=== PATIENT | female | born 1985 | race Hispanic/Latino ===

== ENCOUNTER 2017-07-14 07:03 | Emergency (ER) | payer MEDICAID, OTHER ==
[~2017-07-14 07:03] MED LIST: METR500T PO
[2017-07-14 07:24] LABS: APPEARANCE,URINE CLEAR (CLEAR); BILIRUBIN,URINE NEGATIVE (NEGATIVE); COLOR,URINE YELLOW (YELLOW); GLUCOSE, URINE (UA) NEGATIVE (NEGATIVE); KETONES,URINE NEGATIVE (NEGATIVE); LEUKOCYTE ESTERASE ,URINE LARGE (NEGATIVE); NITRATE,URINE NEGATIVE (NEGATIVE); OCCULT BLOOD,URINE SMALL (NEGATIVE); PH,URINE 6.5 (5.0-8.0); PROTEIN,URINE 100 (NEGATIVE); UROBILINOGEN,URINE 0.2 mg/dL (0.2-1.0)
[2017-07-14 07:44] LABS: BACTERIA,URINE Moderate /HPF (None Seen); WBC,URINE 51-100 /HPF (0-1)
== END 2017-07-14 08:11 | disposition home or self-care (01) ==
LOC: EDH 07:03
DX: N39.0 Urinary tract infection, site not specified (principal); Z88.0 Allergy status to penicillin; Z98.51 Tubal ligation status; Z98.890 Other specified postprocedural states
CPT/HCPCS: 81001; 81025; 87088; 87186

== ENCOUNTER 2017-08-04 00:19 | Emergency (ER) | payer SELFPAY | END 2017-08-04 01:45 | disposition home or self-care (01) | LOC: EDH 00:19 | DX: J10.1 Influenza due to other identified influenza virus with other respiratory manifestations (principal); Z88.0 Allergy status to penicillin; Z72.0 Tobacco use | CPT/HCPCS: 87804; 87880 ==

== ENCOUNTER 2018-06-08 10:42 | Emergency (ER) | payer MEDICAID ==
[2018-06-08 11:04] LABS: APPEARANCE,URINE Cloudy (CLEAR); BILIRUBIN,URINE Negative (NEGATIVE); COLOR,URINE Yellow (YELLOW); GLUCOSE, URINE (UA) Negative (NEGATIVE); KETONES,URINE Trace mg/dL (NEGATIVE); LEUKOCYTE ESTERASE ,URINE Large (NEGATIVE); NITRATE,URINE Negative (NEGATIVE); OCCULT BLOOD,URINE Small (NEGATIVE); PH,URINE 5.5 (5.0-8.0); PROTEIN,URINE Trace (NEGATIVE)
[2018-06-08 11:09] LABS: HCG,QUAL RESULT NEGATIVE (NEGATIVE)
[2018-06-08 11:16] LABS: BACTERIA,URINE Rare /HPF (None Seen); MUCUS,URINE Few LPF (None Seen); RBC,URINE 0-1 /HPF (0-1); SQUAMOUS EPITHELIAL CELL,UR Rare /HPF (0-2); WBC,URINE TNTC /HPF (0-1)
[2018-06-08] MEDS ORDERED: LIDOCAINE HCL-MPF 1% 2ML VIAL ONE (11:39)
[2018-06-08] MEDS ORDERED: CEFTRIAXONE SODIUM 1 GM ONE (11:40)
== END 2018-06-08 11:55 | disposition home or self-care (01) ==
LOC: EDH 10:42
DX: N39.0 Urinary tract infection, site not specified (principal); Z88.0 Allergy status to penicillin
CPT/HCPCS: 81001; 81025; 96372; 99283; J0696; J3490

== ENCOUNTER 2019-06-15 11:42 | Emergency (ER) | payer MEDICAID ==
[2019-06-15 13:47] LABS: APPEARANCE,URINE Clear (CLEAR); BILIRUBIN,URINE Negative (NEGATIVE); COLOR,URINE Yellow (YELLOW); GLUCOSE, URINE (UA) Negative (NEGATIVE); KETONES,URINE Negative (NEGATIVE); LEUKOCYTE ESTERASE ,URINE Negative (NEGATIVE); NITRATE,URINE Negative (NEGATIVE); OCCULT BLOOD,URINE Negative (NEGATIVE); PH,URINE 8.5 (5.0-8.0); PROTEIN,URINE Negative (NEGATIVE)
[2019-06-15 13:50] LABS: HCG,QUAL RESULT NEGATIVE (NEGATIVE)
[2019-06-15] MEDS ORDERED: ORPHENADRINE CITRATE 30 MG/ML ML ONE (14:01)
[2019-06-15] MEDS ORDERED: KETOROLAC TROMETHAMINE 30MG/ML ONE (14:01)
== END 2019-06-15 14:52 | disposition home or self-care (01) ==
LOC: EDH 11:42
DX: M54.6 Pain in thoracic spine (principal); Z88.0 Allergy status to penicillin
CPT/HCPCS: 81003; 81025; 96372 ×2; 99284; J1885; J2360

== ENCOUNTER 2019-08-08 10:08 | Emergency (ER) | payer BC, MEDICAID ==
[2019-08-08 10:57] LABS: APPEARANCE,URINE Cloudy (CLEAR); BILIRUBIN,URINE Negative (NEGATIVE); COLOR,URINE Dark Yellow (YELLOW); GLUCOSE, URINE (UA) Negative (NEGATIVE); KETONES,URINE Trace mg/dL (NEGATIVE); LEUKOCYTE ESTERASE ,URINE Negative (NEGATIVE); NITRATE,URINE Negative (NEGATIVE); OCCULT BLOOD,URINE Negative (NEGATIVE); PH,URINE 5.5 (5.0-8.0); PROTEIN,URINE POS 1+ mg/dL (NEGATIVE)
[2019-08-08 11:19] LABS: HCG,QUAL RESULT NEGATIVE (NEGATIVE)
[2019-08-08 11:37] LABS: BASOPHILS % (AUTO) 0.4 % (0.0-5.0); EOSINOPHILS % (AUTO) 2.1 % (0.0-8.0); HEMATOCRIT 31.6 % (36-48); LYMPHOCYTES % (AUTO) 28.2 % (21.0-51.0); MEAN CORPUSCULAR HEMOGLOBIN 15.9 pg (27.0-33.0); MEAN CORPUSCULAR HGB CONC 26.3 g/dL (32.0-36.0); MEAN CORPUSCULAR VOLUME 60.7 fL (79-99); MONOCYTES % (AUTO) 9.5 % (3.0-13.0); NEUTROPHILS % (AUTO) 59.5 % (40.0-77.0); PLATELET COUNT (AUTO) 436 K/uL (130-400); RED BLOOD CELL COUNT(AUTO) 5.21 MIL/uL (4.00-5.50); RED CELL DISTRIBUTION WIDTH 20.5 % (11.0-15.5)
[2019-08-08 11:44] LABS: BACTERIA,URINE Few /HPF (None Seen); RBC,URINE 0-1 /HPF (0-1); WBC,URINE 0-1 /HPF (0-1)
[2019-08-08 12:10] LABS: CREATININE 0.7 mg/dL (0.5-1.5); POTASSIUM 3.2 mmol/L (3.5-5.1)
[2019-08-08 12:15] LABS: ALBUMIN 3.9 g/dL (3.5-5.0); BILIRUBIN,TOTAL 0.3 mg/dL (0.2-1.0); TOTAL PROTEIN, SERUM 8.8 g/dL (6.0-8.3)
== END 2019-08-08 14:16 | disposition home or self-care (01) ==
LOC: EDH 10:08
DX: R19.7 Diarrhea, unspecified (principal); Z88.0 Allergy status to penicillin; Z98.890 Other specified postprocedural states
CPT/HCPCS: 36415; 80053; 81001; 81025; 82948; 85025; 87046; 87804

== ENCOUNTER 2019-08-11 14:10 | Inpatient (IN) | payer BC ==
[~2019-08-11] VITALS: Ht 162.6 cm; Wt 86.2 kg
[2019-08-11 15:40] LABS: APPEARANCE,URINE Cloudy (CLEAR); BILIRUBIN,URINE Negative (NEGATIVE); COLOR,URINE Yellow (YELLOW); GLUCOSE, URINE (UA) Negative (NEGATIVE); KETONES,URINE Trace mg/dL (NEGATIVE); LEUKOCYTE ESTERASE ,URINE Small (NEGATIVE); NITRATE,URINE Negative (NEGATIVE); OCCULT BLOOD,URINE Negative (NEGATIVE); PH,URINE 5.5 (5.0-8.0); PROTEIN,URINE Negative (NEGATIVE)
[2019-08-11 15:45] LABS: HCG,QUAL RESULT NEGATIVE (NEGATIVE)
[2019-08-11 15:49] LABS: BASOPHILS % (AUTO) 0.3 % (0.0-5.0); EOSINOPHILS % (AUTO) 1.5 % (0.0-8.0); HEMATOCRIT 27.8 % (36-48); LYMPHOCYTES % (AUTO) 36.3 % (21.0-51.0); MEAN CORPUSCULAR HEMOGLOBIN 16.2 pg (27.0-33.0); MEAN CORPUSCULAR VOLUME 59.9 fL (79-99); MONOCYTES % (AUTO) 8.9 % (3.0-13.0); NEUTROPHILS % (AUTO) 52.7 % (40.0-77.0); PLATELET COUNT (AUTO) 376 K/uL (130-400); RED BLOOD CELL COUNT(AUTO) 4.64 MIL/uL (4.00-5.50); RED CELL DISTRIBUTION WIDTH 20.2 % (11.0-15.5); WHITE BLOOD COUNT (AUTO) 6.8 K/uL (4.8-10.8)
[2019-08-11] MEDS ORDERED: SODIUM CHLORIDE 0.9% 1000ML 1,000 ML IV ONE (15:55)
[2019-08-11 16:01] LABS: CREATININE 0.7 mg/dL (0.5-1.5); POTASSIUM 3.1 mmol/L (3.5-5.1)
[2019-08-11 16:06] LABS: BACTERIA,URINE Moderate /HPF (None Seen); MUCUS,URINE Many LPF (None Seen); SQUAMOUS EPITHELIAL CELL,UR Moderate /HPF (0-2)
[2019-08-11 16:07] LABS: BILIRUBIN,TOTAL 0.3 mg/dL (0.2-1.0)
[2019-08-11 16:08] LABS: ALBUMIN 3.5 g/dL (3.5-5.0); INR 1.04 (0.85-1.15); PARTIAL THROMBOPLASTIN TIME 28.4 SEC (26.3-35.5); PROTHROMBIN TIME 10.9 SEC (9.6-11.6); TOTAL PROTEIN, SERUM 7.8 g/dL (6.0-8.3)
[2019-08-11] MEDS ORDERED: POTASSIUM BICARB/CIT AC 25 MEQ TABLET.EFF ONE (17:42)
[2019-08-11] MEDS ORDERED: IRON SUCROSE COMPLEX 100 MG in SODIUM CHLORIDE 0.9% 50 ML IV SCH (20:00)
[2019-08-11] MEDS ORDERED: POTASSIUM CHLORIDE 20 MEQ ERTAB PO PRN (21:00)
[2019-08-11] MEDS ORDERED: ACETAMINOPHEN 325 MG TAB PO PRN ×2 (21:00)
[2019-08-11] MEDS ORDERED: LIDOCAINE HCL-MPF 1% 2ML VIAL IV PRN (21:00)
[2019-08-11] MEDS ORDERED: ONDANSETRON HCL 4 MG/2 ML VIAL IV PRN (21:00)
[2019-08-11] MEDS ORDERED: MAGNESIUM 2GM PREMIX 50ML 50 ML IV PRN (21:00)
[2019-08-11] MEDS ORDERED: SODIUM CHLORIDE 0.9% 1000ML 1,000 ML IV SCH (21:00)
[2019-08-11] MEDS ORDERED: POTASSIUM CHLORIDE 20MEQ/100ML 100 ML IV PRN (21:00)
[2019-08-11] MEDS ORDERED: POTASSIUM CHLORIDE 10% ELIXIR 20 MEQ/15 ML UDCUP ONE (21:19)
[2019-08-11] MEDS ORDERED: MAGNESIUM 2GM PREMIX 50ML 50 ML IV ONE (21:24)
[2019-08-11] MEDS ORDERED: FAMOTIDINE/PF 20 MG/2 ML VIAL IV ONE (21:25)
[2019-08-11] MEDS ORDERED: COMPOUND IV MISC 1 EACH IVSOLN MISC PRN (21:30)
[2019-08-11 23:41] VITALS: BP 125/70
[2019-08-12 03:49] VITALS: BP 115/67
[2019-08-12 04:42] LABS: ALBUMIN 3.3 g/dL (3.5-5.0); BILIRUBIN,TOTAL 0.2 mg/dL (0.2-1.0); CREATININE 0.6 mg/dL (0.5-1.5); MAGNESIUM 3.5 mg/dL (1.80-2.40); POTASSIUM 3.3 mmol/L (3.5-5.1); TOTAL PROTEIN, SERUM 7.3 g/dL (6.0-8.3)
[2019-08-12 04:51] LABS: BASOPHILS % (AUTO) 0.2 % (0.0-5.0); EOSINOPHILS % (AUTO) 1.2 % (0.0-8.0); LYMPHOCYTES % (AUTO) 48.8 % (21.0-51.0); MEAN CORPUSCULAR HEMOGLOBIN 16.1 pg (27.0-33.0); MEAN CORPUSCULAR HGB CONC 26.9 g/dL (32.0-36.0); MEAN CORPUSCULAR VOLUME 59.9 fL (79-99); MONOCYTES % (AUTO) 8.4 % (3.0-13.0); NEUTROPHILS % (AUTO) 41.2 % (40.0-77.0); PLATELET COUNT (AUTO) 366 K/uL (130-400); RED BLOOD CELL COUNT(AUTO) 4.34 MIL/uL (4.00-5.50); WHITE BLOOD COUNT (AUTO) 8.1 K/uL (4.8-10.8)
[2019-08-12] MEDS: POTASSIUM CHLORIDE 10% ELIXIR 20 MEQ/15 ML UDCUP PO PRN ×3 (05:15→09:53)
--- NOTE | 2019-08-12 05:15 | NUR ---
CRITICAL VALUE REPORT CALL PLACED TO ANSWERING SERVICE FOR LAURA GANDHI TO REPORT PATIENT CRITICAL VALUES.
--- NOTE | 2019-08-12 05:49 | NUR ---
TALKED TO PROVIDER FIELD ASSISTANT SPOKE TO LAURA GANDHI TO REPORT CRITICAL VALUES. PROVIDER SAID TO CONTINUE TO MONITOR PATIENT FOR ANY BLOOD LOSS AND TO REPEAT H&H AT 1200.
[2019-08-12 07:23] VITALS: BP 103/58
[2019-08-12] MEDS: FAMOTIDINE/PF 20 MG/2 ML VIAL IV SCH ×2 (08:58→21:08)
[2019-08-12] MEDS ORDERED: IRON SUCROSE COMPLEX 100 MG in SODIUM CHLORIDE 0.9% 50 ML IV SCH (09:00)
[2019-08-12 11:35] VITALS: BP 114/67
[2019-08-12 12:08] LABS: HEMATOCRIT 26.7 % (36-48)
--- NOTE | 2019-08-12 12:45 | NUR ---
CALLED ANSWERING SERVICE FOR HOSPITALIST TO NOTIFY DR. GARCIA OF CRITICAL VALUES. WILL WAIT FOR CALL BACK
--- NOTE | 2019-08-12 13:04 | NUR ---
RYANNE SCHMIDT NP NOTIFIED ON CRITICAL VALUE.
--- NOTE | 2019-08-12 15:30 | NUR ---
FIRST UNIT OF PRBC STARTED AT THIS TIME. SYMPTOMS OF TRANSFUSION REACTION REVIEWED WITH PATIENT. PT VERBALIZED UNDERSTANDING.
[2019-08-12 15:51] VITALS: BP 126/80
--- NOTE | 2019-08-12 16:40 | NUR ---
DCP: HOME met with pt who lives with her nancy Linda [phone] and 4 kids 11,8,5,4. Pt states she is independent, drives and works at [employer]. Pt is seen at [employer] by Shefali and uses [facility]. Pt denies dc needs and plan is home [place] Addendum: 08/12/19 at 1643 by GURPREET CHOUDHARY SS Amended: Links added.
--- NOTE | 2019-08-12 17:15 | NUR ---
UNIT OF PRBC COMPLETED AT THIS TIME. NO REACTION NOTED.
--- NOTE | 2019-08-12 17:20 | NUR ---
LAURA CARMONA NOTIFIED THAT BLOOD TRANSFUSION WAS COMPLETE. NEW ORDERS RECEIVED. PATIENT WILL STAY TO BE OBSERVED. DISCONTINUE IV FLUIDS.
[2019-08-12 19:18] VITALS: BP 116/71
[2019-08-12 23:53] VITALS: BP 113/61
[2019-08-13 03:21] VITALS: BP 102/50
[2019-08-13 04:53] LABS: HEMATOCRIT 29.6 % (36-48)
[2019-08-13 08:10] VITALS: BP 124/68
--- NOTE | 2019-08-13 08:10 | NUR ---
BRAYAN PEARL,LAURA ROUNDING. POC DISCUSSED WITH PATIENT. PATIENT OKAY TO BE DISCHARGED.
[2019-08-13] MEDS ORDERED: FERS325 PO (08:27)
--- NOTE | 2019-08-13 10:25 | NUR ---
PATIENT LEFT UNIT VIA WHEELCHAIR WITH BELONGINGS IN HAND. PERSONAL VEHICLE USED FOR TRANSPORTATION WITH . PRESCRIPTION FOR FERROUS SULFATE 325MG TO PREFERRED PHARMACY AT [facility] IN [place].
== END 2019-08-13 10:25 | disposition home or self-care (01) | DRG 812 ==
LOC: EDH 14:10 → EDHIP 20:56 → WSH 23:25
PROVIDERS: ADMIT Internal Medicine; ATTEND Internal Medicine
PROC: 30233N1 Transfusion of Nonautologous Red Blood Cells into Peripheral Vein, Percutaneous Approach (ICD-10-PCS; principal; 2019-08-12)
DX: D50.9 Iron deficiency anemia, unspecified (principal); K90.9 Intestinal malabsorption, unspecified; E87.6 Hypokalemia; E83.42 Hypomagnesemia; E66.9 Obesity, unspecified; F17.210 Nicotine dependence, cigarettes, uncomplicated; Z83.3 Family history of diabetes mellitus; Z82.5 Family history of asthma and other chronic lower respiratory diseases; Z82.49 Family history of ischemic heart disease and other diseases of the circulatory system; Z82.3 Family history of stroke; Z82.0 Family history of epilepsy and other diseases of the nervous system; Z88.0 Allergy status to penicillin; Z68.32 Body mass index [BMI] 32.0-32.9, adult
CPT/HCPCS: 36415; 36430; 80053; 81001; 81025; 82270; 83540; 83550; 83735; 84132; 85014; 85018; 85025; 85610; 85730; 86850; 86900; 86901; 86922; G0378; J1756; J3475; J3490; J7030; P9016